=== PATIENT | female | born 1950 | race Caucasian/White ===

== ENCOUNTER → 2023-06-07 | Outpatient (CLI) | payer OTHER ==
[2023-06-07 15:03] LABS: Microalb/Creat Ratio UR, Rand 29.923 mg/g (0.000-30.000); Microalbumin, Random Urine 38.9 mg/L (0.000-20.000)
== END | disposition home or self-care (01) ==
LOC: LAB 10:30 → LAB SHORT 10:30
PROVIDERS: Physician Assistant
DX: E11.22 Type 2 diabetes mellitus with diabetic chronic kidney disease (principal)
CPT/HCPCS: 82043; 82570